=== PATIENT | female | born 1980 ===

== ENCOUNTER → 2017-11-27 | Day surgery (SDC) | payer OTHER | END | disposition home or self-care (01) | LOC: ADM 11-18 15:30 → AMB-ENDOS 10:22 | DX: K31.7 Polyp of stomach and duodenum (principal); K29.60 Other gastritis without bleeding; K44.9 Diaphragmatic hernia without obstruction or gangrene; K29.80 Duodenitis without bleeding ==

== ENCOUNTER 2021-08-13 08:48 | Outpatient (CLI) | payer OTHER | END 2021-08-13 08:53 | disposition home or self-care (01) | LOC: SONOGRAMA 08:48 | PROVIDERS: ATTEND Pathology Anatomic Pathology & Clinical Pathology | DX: E04.2 Nontoxic multinodular goiter (principal) ==

== ENCOUNTER 2024-03-22 09:57 | Outpatient (CLI) | payer OTHER | END 2024-03-22 09:59 | disposition home or self-care (01) | LOC: SONOGRAMA 09:57 | PROVIDERS: ATTEND Pathology Anatomic Pathology | DX: D34 Benign neoplasm of thyroid gland (principal); E07.89 Other specified disorders of thyroid; E04.1 Nontoxic single thyroid nodule ==

== ENCOUNTER 2025-05-16 08:20 | Outpatient (CLI) | payer OTHER | END 2025-05-16 08:25 | disposition home or self-care (01) | LOC: SONOGRAMA 08:20 | PROVIDERS: ATTEND Pathology Anatomic Pathology & Clinical Pathology | DX: D34 Benign neoplasm of thyroid gland (principal); E07.89 Other specified disorders of thyroid; E04.2 Nontoxic multinodular goiter ==